=== PATIENT | female | born 1975 | race Caucasian/White ===

== ENCOUNTER 2017-10-26 08:32 | Emergency (ER) | payer BC ==
[2017-10-26 08:39] VITALS: BP 128/66; PULSE 72; TEMP 98; BMI 39.9
[2017-10-26] MEDS ORDERED: KETOROLAC TROMETHAMINE 60 MG/2 ML VIAL ONE (08:57)
[2017-10-26] MEDS ORDERED: KETOROLAC TROMETHAMINE 60 MG/2 ML VIAL IM ONE (08:57)
[2017-10-26] MEDS ORDERED: CYCLOBENZAPRINE HCL 10 MG TABLET (FP) PO ONE (10:32)
--- NOTE | 2017-10-26 10:36 | PDOC ---
History of Present Illness - General Chief Complaint: Pain Stated Complaint: PAIN Time Seen by Provider: 10/26/17 08:51 History Source: Patient Exam Limitations: No Limitations - History of Present Illness Initial Comments: 10/26/17 10:33 42 yr female no PMHX states she woke up yesterday with right hip pain radiates to her buttock and lateral thigh no abd pain Past History - Past Medical History Allergies/Adverse Reactions: Allergies Allergy/AdvReac Type Severity Reaction Status Date / Time No Known Allergies Allergy Verified 10/26/17 08:39 Home Medications: Ambulatory Orders Cyclobenzaprine HCl [Flexeril 10 mg] 10 mg PO TID PRN #21 tablet 10/26/17 Naproxen [Naprosyn -] 500 mg PO BID PRN #14 tablet 10/26/17 Asthma: Yes (CHILDHOOD) COPD: No - Suicide/Smoking/Psychosocial Hx Smoking History: Never smoked Hx Alcohol Use: No Drug/Substance Use Hx: No Substance Use Type: None *Physical Exam - Vital Signs Last Vital Signs Temp Pulse Resp BP Pulse Ox 98.0 F 72 18 128/66 100 10/26/17 08:37 10/26/17 08:37 10/26/17 08:37 10/26/17 08:37 10/26/17 08:37 - Physical Exam General Appearance: Yes: Nourished, Appropriately Dressed HEENT: positive: EOMI, ANGELO Neck: positive: Supple. negative: Tender Respiratory/Chest: positive: Lungs Clear, Normal Breath Sounds Cardiovascular: positive: Regular Rhythm, Regular Rate Gastrointestinal/Abdominal: positive: Normal Bowel Sounds, Soft. negative: Tender Lymphatic: negative: Adenopathy Musculoskeletal: positive: Normal Inspection Extremity: positive: Normal Capillary Refill, Normal Inspection, Other ( decreased range of motion to the right hip , no bony tenderness, ttp right buttock soft tissue ) Integumentary: positive: Normal Color, Dry, Warm Neurologic: positive: Fully Oriented, Alert, Normal Mood/Affect, Normal Response , Motor Strength 5/5 ED Treatment Course - RADIOLOGY Radiology Studies Ordered: Category Date Time Status HIP & PELVIS-RIGHT [RAD] Stat Radiology 10/26/17 08:57 Taken - Medications Given in the ED: ED Medications Discontinued Medications Generic Name Dose Route Start Last Admin Trade Name Freq PRN Reason Stop Dose Admin Ketorolac Tromethamine 60 mg 10/26/17 08:57 10/26/17 09:00 Toradol Injection - IM 10/26/17 08:58 60 mg ONCE ONE Administration Medical Decision Making - Medical Decision Making 10/26/17 11:01 cc: 2 days pain to the right hip area , pain with sitting to standing positional no fever no back pain no abd pain or urinary complaints , no bowel complaints pt took ibuprofen last night with some relief pain reproduced with movement and position denies any trauma or recent surgery or travel no ocp LMP 3 weeks ago 10/26/17 11:21 pt ambulatory steady gait feels better after meds. xray is negative report given to patient dc inst discussed pt agrees with plan of care. *DC/Admit/Observation/Transfer Diagnosis at time of Disposition: Sciatica Qualifiers: Laterality: right Qualified Code(s): M54.31 - Sciatica, right side - Discharge Dispostion Disposition: HOME Condition at time of disposition: Improved - Prescriptions Prescriptions: Cyclobenzaprine HCl [Flexeril 10 mg] 10 mg PO TID PRN #21 tablet PRN Reason: Muscle Spasms Naproxen [Naprosyn -] 500 mg PO BID PRN #14 tablet PRN Reason: Pain - Referrals Referrals: Dudley Mota MD [Primary Care Provider] - - Patient Instructions Additional Instructions: take the medication as prescribed for pain apply ice to the area every 2hrs for 20 minutes follow with your doctor tomorrow for follow up and continued workup if needed avoid heavy lifting or bending however do not stay in the same position , make sure you walk around as tolerated Return if any worsening symptoms - Post Discharge Activity
== END 2017-10-26 11:26 | disposition home or self-care (01) ==
LOC: JERFT 08:32
PROC: 3E0233Z Introduction of Anti-inflammatory into Muscle, Percutaneous Approach (ICD-10-PCS; principal; 2017-10-26)
DX: M54.31 Sciatica, right side (principal)
CPT/HCPCS: 73523-TC-FY; 99281-25

== ENCOUNTER 2018-01-18 08:37 | Emergency (ER) | payer BC ==
[2018-01-18 08:43] VITALS: BP 126/76; PULSE 78; TEMP 97.7; BMI 40.7
[2018-01-18] MEDS ORDERED: predniSONE 20 MG TABLET (UD) PO ONE (08:55)
[2018-01-18] MEDS ORDERED: ALBUTEROL SO4 2.5/IPRATROPIUM 0.5 INH SOL 3 ML VIAL.NEB. NEB ONE (08:57)
[2018-01-18] MEDS ORDERED: predniSONE 20 MG TABLET (UD) ONE (08:57)
[2018-01-18] MEDS: ALBUTEROL SO4 2.5/IPRATROPIUM 0.5 INH SOL 3 ML VIAL.NEB. NEB SCH ×2 (09:01→09:18)
--- NOTE | 2018-01-18 09:01 | PDOC ---
History of Present Illness - General Chief Complaint: Respiratory Stated Complaint: ASTHMA Time Seen by Provider: 01/18/18 08:53 History Source: Patient Exam Limitations: No Limitations - History of Present Illness Initial Comments: 01/18/18 09:02 Came for evaluation of persistent and worsening cough. was seen by PMD last week and prescribed azithromycin which she has completed as of yesterday. States has improved however tightness and wheezing has not resolved. Has been using albuterol pump 3 times a day and some [id number] and old-fashioned treatments but has persisted with the wheezing. Timing/Duration: reports: getting worse Severity: reports: moderate Associated Symptoms: reports: chest pain/soreness, cough, fever/chills, nasal drainage, shortness of breath Past History - Travel Traveled outside of the country in the last 30 days: No Close contact w/someone who was outside of country & ill: No - Past Medical History Allergies/Adverse Reactions: Allergies Allergy/AdvReac Type Severity Reaction Status Date / Time No Known Allergies Allergy Verified 01/18/18 08:43 Home Medications: Ambulatory Orders Albuterol 0.083% Nebulizer Maddy [Ventolin 0.083% Nebulizer Soln -] 1 neb NEB Q4H PRN #30 vial 01/18/18 Prednisone [Deltasone] 20 mg PO DAILY #8 tablet 01/18/18 Asthma: Yes (CHILDHOOD) COPD: No - Suicide/Smoking/Psychosocial Hx Smoking History: Never smoked Hx Alcohol Use: No Drug/Substance Use Hx: No Substance Use Type: None Review of Systems - Review of Systems Able to Perform ROS?: Yes Is the patient limited [place] proficient: Yes Constitutional: Yes: Symptoms Reported, See HPI, Malaise HEENTM: Yes: Symptoms Reported, See HPI, Nose Congestion Respiratory: Yes: Symptoms reported, See HPI, Cough, Shortness of Breath, Wheezing Cardiac (ROS): No: Symptoms Reported Musculoskeletal: Yes: Symptoms Reported, Muscle Weakness (aches ) Neurological: Yes: Symptoms reported, See HPI, Headache (sinus) All Other Systems: Reviewed and Negative *Physical Exam - Vital Signs Last Vital Signs Temp Pulse Resp BP Pulse Ox 97.7 F 78 16 126/76 100 01/18/18 08:40 01/18/18 08:40 01/18/18 08:40 01/18/18 08:40 01/18/18 08:40 - Physical Exam General Appearance: Yes: Nourished, Appropriately Dressed, Apparent Distress, Mild Distress HEENT: positive: ANGELO, TMs Normal (congested ), Pharynx Normal (no redness / swelling or exudate), Nasal Congestion, Rhinorrhea, Sinus Tenderness, TM Bulging. negative: Normal ENT Inspection Neck: positive: Supple. negative: Tender Respiratory/Chest: positive: Decreased Breath Sounds, Wheezing (tight exp t/o). negative: Chest Tender, Lungs Clear, Normal Breath Sounds Musculoskeletal: positive: Normal Inspection Extremity: positive: Normal Capillary Refill, Normal Inspection Integumentary: positive: Dry, Warm, Pale Neurologic: positive: crm technical lead II-XII NML intact, Fully Oriented, Alert, Normal Mood/ Affect, Normal Response, Motor Strength 5/5 Moderate Sedation - Procedure Monitoring Vital Signs: Procedure Monitoring Vital Signs Temperature 97.7 F 01/18/18 08:40 Pulse Rate 78 01/18/18 08:40 Respiratory Rate 16 01/18/18 08:40 Blood Pressure 126/76 01/18/18 08:40 O2 Sat by Pulse Oximetry (%) 100 01/18/18 08:40 Progress Note - Progress Note Progress Note: Upper respiratory infection, much improved after DuoNeb and prednisone. *DC/Admit/Observation/Transfer Diagnosis at time of Disposition: Asthma exacerbation Qualifiers: Asthma severity: moderate Asthma persistence: unspecified Qualified Code(s): J45.901 - Unspecified asthma with (acute) exacerbation - Discharge Dispostion Disposition: HOME Condition at time of disposition: Stable Decision to Admit order: No - Prescriptions Prescriptions: Albuterol 0.083% Nebulizer Maddy [Ventolin 0.083% Nebulizer Soln -] 1 neb NEB Q4H PRN #30 vial PRN Reason: Cough Prednisone [Deltasone] 20 mg PO DAILY #8 tablet - Referrals Referrals: Dudley Mota MD [Primary Care Provider] - - Patient Instructions Printed Discharge Instructions: DI for Asthma -- Adult Additional Instructions: Rest, drink lots of fluids: Teas, water, soups, Pedialyte Saltwater gargles Steamy showers/seem to face break up mucus Avoid contact with others until fevers and cough resolved Lots of handwashing and good hygiene Continue [id number] medications for symptomatic relief Tylenol or Motrin for fever and pain Continue albuterol nebulizers every 4-6 hours for the next 2 days then as needed for continued cough Prednisone as directed until completed Followup with private physician in one to 2 days Return to emergency department / pediatric hospital for worsened symptoms, fevers, dehydration - Post Discharge Activity Forms/Work/School Notes: Back to Work
== END 2018-01-18 09:44 | disposition home or self-care (01) ==
LOC: JERFT 08:37
PROC: 3E0F7GC Introduction of Other Therapeutic Substance into Respiratory Tract, Via Natural or Artificial Opening (ICD-10-PCS; principal; 2018-01-18)
DX: J45.901 Unspecified asthma with (acute) exacerbation (principal)
CPT/HCPCS: 99281-25

== ENCOUNTER 2021-03-03 20:25 | Observation (INO) | payer BC ==
[2021-03-03] MEDS ORDERED: methylPREDNISolone NA SUCC 125 MG/2 ML VIAL IVPUSH ONE (20:38)
[2021-03-03] MEDS ORDERED: ALBUTEROL SO4 2.5/IPRATROPIUM 0.5 INH SOL 3 ML VIAL.NEB. NEB ONE ×2 (20:39→20:49)
[2021-03-03] MEDS ORDERED: methylPREDNISolone NA SUCC 125 MG/2 ML VIAL ONE (20:49)
[2021-03-03 21:13] LABS: BILIRUBIN,TOTAL 0.3 mg/dl (0.2-1); CALCIUM 9.6 mg/dl (8.5-10); CREATININE 0.9 mg/dl (0.55-1.3); TOT PROT 7.4 g/dl (6.4-8.2)
[2021-03-03 22:26] LABS: BASO % 0.8 % (0-2.0); EOS % 8.1 % (0-4.5); HEMOGLOBIN 11.9 GM/dL (10.7-15.3); LYMPH % 26.2 % (8-40); MCH 27.7 pg (25.7-33.7); MEAN PLT VOLUME 9.7 fl (7.5-11.1); MONO % 7.1 % (3.8-10.2); NEUT % 57.8 % (42.8-82.8); PLATELET COUNT 279 10^3/uL (134-434); RBC 4.28 M/mm3 (3.60-5.2); RDW 15.5 % (11.6-15.6); WHITE BLOOD COUNT 6.7 K/mm3 (4.0-10.0)
[2021-03-03] MEDS ORDERED: POLYETHYLENE GLYCOL (HEALTHYLAX) 3350 17 GM PACKET PO PRN (22:50)
[2021-03-03] MEDS ORDERED: ALBUTEROL SO4 0.083% IH SOL 2.5 MG/3 ML VIAL.NEB. NEB PRN (22:50)
[2021-03-03] MEDS ORDERED: ACETAMINOPHEN 325 MG TABLET (FP) PO PRN (22:50)
[2021-03-04] MEDS: BUDESONIDE/FORMETEROL FUMARATE 160/4.5 mcg INHALER IH SCH ×3 (01:59→21:41)
[2021-03-04] MEDS: methylPREDNISolone NA SUCC 40 MG/1 ML VIAL IVPUSH SCH ×4 (02:00→21:33)
[2021-03-04 02:29] VITALS: BMI 38.7
[2021-03-04] MEDS: INSULIN SLIDING SCALE (NOVOLOG) 1 VIAL SQ SCH ×4 (06:14→21:51)
[2021-03-04 08:30] LABS: CALCIUM 9.4 mg/dl (8.5-10); CREATININE 0.6 mg/dl (0.55-1.3); MAGNESIUM 1.9 mg/dL (1.8-2.4)
[2021-03-04 09:08] LABS: ACTIVATED PTT 30.1 SECONDS (25.2-36.5)
[2021-03-04 09:12] LABS: INR 1.19 (0.83-1.09); PROTHROMBIN TIME (PATIENT) 13.2 SEC (9.7-13.0)
[2021-03-04 09:29] LABS: BASO % 0.2 % (0-2.0); EOS % 0.1 % (0-4.5); HEMATOCRIT 37.2 % (32.4-45.2); HEMOGLOBIN 11.9 GM/dL (10.7-15.3); LYMPH % 13.7 % (8-40); MCHC 32.1 g/dl (32.0-36.0); MEAN CELL VOLUME 83.9 fl (80-96); MEAN PLT VOLUME 10.4 fl (7.5-11.1); MONO % 0.9 % (3.8-10.2); NEUT % 85.1 % (42.8-82.8); PLATELET COUNT 290 10^3/uL (134-434); RBC 4.43 M/mm3 (3.60-5.2); RDW 15.7 % (11.6-15.6); WHITE BLOOD COUNT 5.7 K/mm3 (4.0-10.0)
[2021-03-04] MEDS: PANTOPRAZOLE 20 MG TABLET PO SCH (09:59)
[2021-03-04] MEDS: ENOXAPARIN NA (PORCINE) 40 MG/0.4 ML DISP.SYRIN SQ SCH (10:07)
[2021-03-04] MEDS ORDERED: ALBUTEROL SO4 0.083% IH SOL 2.5 MG/3 ML VIAL.NEB. NEB PRN (14:10)
[2021-03-04] MEDS: ALBUTEROL SO4 2.5/IPRATROPIUM 0.5 INH SOL 3 ML VIAL.NEB. NEB SCH ×2 (16:22→21:33)
[2021-03-04] MEDS: MONTELUKAST NA 10 MG TABLET PO SCH (21:35)
[2021-03-05] MEDS: methylPREDNISolone NA SUCC 40 MG/1 ML VIAL IVPUSH SCH ×4 (04:00→21:30)
[2021-03-05] MEDS: INSULIN SLIDING SCALE (NOVOLOG) 1 VIAL SQ SCH ×2 (06:52→11:30)
[2021-03-05 08:14] LABS: ALBUMIN 3.9 g/dl (3.4-5.0); BILIRUBIN,TOTAL 0.5 mg/dl (0.2-1); CALCIUM 9.5 mg/dl (8.5-10); CREATININE 0.5 mg/dl (0.55-1.3); MAGNESIUM 2.2 mg/dL (1.8-2.4)
[2021-03-05 08:45] LABS: BASO % 0.1 % (0-2.0); HEMATOCRIT 37.9 % (32.4-45.2); HEMOGLOBIN 12.2 GM/dL (10.7-15.3); LYMPH % 10.9 % (8-40); MCH 27.1 pg (25.7-33.7); MCHC 32.2 g/dl (32.0-36.0); MEAN CELL VOLUME 84.1 fl (80-96); MEAN PLT VOLUME 10.3 fl (7.5-11.1); MONO % 3.2 % (3.8-10.2); NEUT % 85.8 % (42.8-82.8); PLATELET COUNT 304 10^3/uL (134-434); WHITE BLOOD COUNT 8.9 K/mm3 (4.0-10.0)
[2021-03-05] MEDS: ALBUTEROL SO4 2.5/IPRATROPIUM 0.5 INH SOL 3 ML VIAL.NEB. NEB SCH ×4 (09:05→21:30)
[2021-03-05] MEDS: ENOXAPARIN NA (PORCINE) 40 MG/0.4 ML DISP.SYRIN SQ SCH (09:16)
[2021-03-05] MEDS: PANTOPRAZOLE 20 MG TABLET PO SCH (09:16)
[2021-03-05] MEDS: BUDESONIDE/FORMETEROL FUMARATE 160/4.5 mcg INHALER IH SCH ×2 (09:32→21:34)
[2021-03-05] MEDS: POLYETHYLENE GLYCOL (HEALTHYLAX) 3350 17 GM PACKET PO SCH (11:24)
[2021-03-05] MEDS: MONTELUKAST NA 10 MG TABLET PO SCH (21:30)
[2021-03-06] MEDS: methylPREDNISolone NA SUCC 40 MG/1 ML VIAL IVPUSH SCH ×2 (03:00→09:16)
[2021-03-06 06:35] VITALS: TEMP 97.8
[2021-03-06 08:55] VITALS: BP 122/62; PULSE 54
[2021-03-06] MEDS: ALBUTEROL SO4 2.5/IPRATROPIUM 0.5 INH SOL 3 ML VIAL.NEB. NEB SCH (09:15)
[2021-03-06] MEDS: POLYETHYLENE GLYCOL (HEALTHYLAX) 3350 17 GM PACKET PO SCH (09:15)
[2021-03-06] MEDS: ENOXAPARIN NA (PORCINE) 40 MG/0.4 ML DISP.SYRIN SQ SCH ×2 (09:15→09:30)
[2021-03-06] MEDS: PANTOPRAZOLE 20 MG TABLET PO SCH (09:15)
[2021-03-06] MEDS: BUDESONIDE/FORMETEROL FUMARATE 160/4.5 mcg INHALER IH SCH (09:16)
== END 2021-03-06 11:00 | disposition home or self-care (01) ==
LOC: FER 20:25 → FM/S 23:50 → UNDOADMOB 03-04 01:18 → FM/S 03-04 06:20
PROVIDERS: ADMIT Family Medicine; ATTEND Nurse Practitioner Acute Care
PROC: 3E0F7GC Introduction of Other Therapeutic Substance into Respiratory Tract, Via Natural or Artificial Opening (ICD-10-PCS; principal; 2021-03-03)
PROC: 3E023GC Introduction of Other Therapeutic Substance into Muscle, Percutaneous Approach (ICD-10-PCS; 2021-03-03)
PROC: 3E033GC Introduction of Other Therapeutic Substance into Peripheral Vein, Percutaneous Approach (ICD-10-PCS; 2021-03-03)
DX: J45.901 Unspecified asthma with (acute) exacerbation (principal); Z29.9 Encounter for prophylactic measures, unspecified
CPT/HCPCS: 36415; 71046-TC-FY; 80048; 80053; 81003; 81025; 82962; 83735; 84484; 85025; 85610; 85730; 87086; 87804; 93005; 94640; 96372; 96374; 96376; 99285-25; C9803; G0378; U0003; U0005

== ENCOUNTER 2021-10-03 22:13 | Emergency (ER) | payer BC ==
[2021-10-03] MEDS ORDERED: predniSONE 20 MG TABLET (UD) PO ONE (22:22)
[2021-10-03] MEDS ORDERED: predniSONE 20 MG TABLET (UD) ONE (22:25)
[2021-10-03 22:26] VITALS: BP 138/75; PULSE 81; RESP 16; TEMP 98.7; BMI 38.8
== END 2021-10-03 22:41 | disposition home or self-care (01) ==
LOC: FER 22:13
DX: L50.9 Urticaria, unspecified (principal)
CPT/HCPCS: 99283-25